=== PATIENT | male | born 1965 | race Caucasian/White ===

== ENCOUNTER 2017-03-29 14:14 | Inpatient (IN) | payer BC, OTHER ==
[~2017-03-29] VITALS: Ht 175.3 cm; Wt 72.6 kg
--- NOTE | 2017-03-29 16:15 | NUR ---
Pre-assessment note: Client is seen in intake at this time. Noted with gross tremors, severe anxiety, sweats and agitation. He is alert and oriented x [address] however disoriented to the date and is unable to do additions at this time. He verbalizes "my skin is crawling out of me and I have something on my skin." Also states "I see patterns and dots on the wall." Reorientation provided. Dr. Guajardo is also present during the pre-admission process. Client states that he is voluntarily here to detox from ETOH. VS: BP: 128/74, Pulse 99, RR 21, O2 sat 95%, Temp 99.1. Patient is a poor historian. He states his last drink was on 03/26/2017. He denies any seizure history but states that he usually goes into DT's when he is detoxing. He is able to verbalize understanding of the admission process. MD Guajardo gave orders for the client to have Ativan 2 mg IM x 1 now for CIWA 38. Charge nurse made aware.
[2017-03-29 16:20] VITALS: BP 128/74
--- NOTE | 2017-03-29 16:21 | NUR ---
Ativan 2 mg IM given: Administered Ativan 2 mg IM x 1 now due to CIWA of 38, noted with moderate-severe tactile, auditory and hearing disturbance, gross tremors, sweating, anxiety, agitation and disorientation. Placed client immediately on 1:1 for safety and brought into the unit to continue care. Requires wheelchair for locomotion on and off unit due to unsteady gait.
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
--- NOTE | 2017-03-29 16:51 | NUR ---
Re-assessment: Ativan 2 mg IM Ativan 2 mg IM was ineffective in reducing patient's withdrawal symptoms. CIWA 40 at this time. MD Guajardo aware and will enter in orders.
[2017-03-29] MEDS ORDERED: INSU100I19 SQ (17:04)
[2017-03-29] MEDS ORDERED: SITA1TAB6 PO (17:04)
[2017-03-29] MEDS ORDERED: LAMO25TA PO (17:04)
[2017-03-29] MEDS ORDERED: ATOR40TA PO (17:04)
[2017-03-29] MEDS ORDERED: EMPA25TA PO (17:04)
--- NOTE | 2017-03-29 17:05 | NUR ---
OT Ativan 2 mg IM given: CIWA 40. Noted with gross tremors, sweating, disorientation with AV hallucinations and tactile disturbance. Patient continues to be on 1:1. Safety precautions in place. OT Ativan 2 mg IM given now. Will monitor for effectiveness.
--- NOTE | 2017-03-29 17:13 | NUR ---
Motrin 400 mg PO given Complains of 5/10 neck pain. Medicated patient with Motrin 400 mg PO as ordered. Will monitor for effectiveness.
[2017-03-29 17:26] LABS: *AMPHETAMINE, URINE NEGATIVE (NEGATIVE); *BARBITURATE, URINE NEGATIVE (NEGATIVE); *CANNABINOID, URINE NEGATIVE (NEGATIVE); *COCCAINE, URINE NEGATIVE (NEGATIVE); *OPIATE, URINE NEGATIVE (NEGATIVE); *PHENCYCLIDINE SCREEN,URINE NEGATIVE (NEGATIVE)
--- NOTE | 2017-03-29 17:35 | NUR ---
Re-assessment: Ativan 2 mg IM CIWA 23. Less anxiety, less agitation, less sweating noted. However, patient continues to have AV hallucinations and tactile disturbance. Patient continues to be disoriented x 1 and is unable to do additions. OT Ativan 2 mg IM was effective in reducing ETOH withdrawal symptoms.
--- NOTE | 2017-03-29 18:13 | NUR ---
Re-assessment: Motrin Per patient, PRN Motrin was mildly effective in reducing patient's neck pain. PL 2.
[2017-03-29 18:42] LABS: ALANINE AMINOTRANSFERASE 32 U/L (16-63); ALKALINE PHOSPHATASE 41 U/L (50-136); AMYLASE 41 U/L (25-115); ASPARTATE AMINOTRANSFERASE 17 U/L (15-37); BILIRUBIN,TOTAL 0.2 mg/dL (0.2-1.0); CARBON DIOXIDE 27 mmol/L (21-32); CHLORIDE 103 mmol/L (98-107); CREATININE 1.7 mg/dL (0.6-1.3); GLUCOSE 187 mg/dL (74-106); LIPASE 133 U/L (73-393); MAGNESIUM 1.9 mg/dL (1.8-2.4); POTASSIUM 3.4 mmol/L (3.5-5.1); TOTAL PROTEIN, SERUM 6.5 g/dL (6.4-8.2); UREA NITROGEN, BLOOD 21 mg/dL (7-18)
[2017-03-29 18:44] LABS: ETHANOL < 3 MG/DL (0-0)
--- NOTE | 2017-03-29 19:02 | NUR ---
End of Shift Notes: Patient is a 51 year old male admitted for ETOH dependence who was placed on a modified 5-day Ativan taper as ordered. No adverse reactions noted. Received 2x Ativan 2 mg IM during the shift due to severe withdrawal symptoms. On 1:1 for unsteady gait and uses wheelchair for locomotion on and off unit. On fall and seizure precautions. Denies S/I or H/I during the shift. Call light in reach. Patient is seen laying in bed with eyes closed at this time. Will continue to monitor closely. VS stable.
--- NOTE | 2017-03-29 19:15 | NUR ---
Start of Shift Note: Patient is a 51 y/o male admitted on 03/29/17 for ETOH dependence. Patient reported with PMHX of Bipolar diroder, C5-C6 Injury, L5-L6 injury, DM II, Hyperlipidemia & hx of Delirium tremens d/t withdrawal. No seizure history noted. Patient is on a regular diet with allergies to Zyprexa & neuroleptic agents. Full Code status. Patient started on a modified Ativan taper and tolerating well. Last CIWA is 23. Pt was given IM Ativan 2x for severe s/s of withdrawal upon admission and were effective. Upon admission, pt was placed on a 1:1 supervision for unsteady gait and safety. Pateint stable at this time and vitals WNL. Safety precautions are in place. bed locked in lowest position. Both side rails up. Call light within pt's reach. Will continue to monitor patient.
[2017-03-29 19:24] LABS: HEMATOCRIT 43.1 % (40-50); HEMOGLOBIN 14.4 G/DL (14.0-18.0); MEAN CORPUSCULAR HEMOGLOBIN 28.7 UUG (27.0-31.0); MEAN CORPUSCULAR HGB CONC 33 g/dL (32.0-37.0); MEAN CORPUSCULAR VOLUME 86.2 FL (82.0-92.0); RED BLOOD CELL COUNT(AUTO) 5.01 MIL/UL (4.7-6.1); WHITE BLOOD COUNT (AUTO) 9.9 K/UL (4.0-11.2)
[2017-03-29 19:25] LABS: BASOPHILS % (AUTO) 0.3 % (0.0-2.0); EOSINOPHILS # (AUTO) 0.2 K/uL (0.0-0.7); EOSINOPHILS % (AUTO) 1.6 % (0.0-7.0); LYMPHOCYTES # (AUTO) 2.2 K/UL (0.8-4.8); LYMPHOCYTES % (AUTO) 21.7 % (20.5-51.5); MONOCYTES # (AUTO) 0.7 K/UL (0.1-1.30); MONOCYTES % (AUTO) 7.4 % (0.0-11.0); NEUTROPHILS # (AUTO) 6.8 K/UL (1.8-8.9); PLATELET COUNT (AUTO) 202 K/UL (150-450)
[2017-03-29 19:45] VITALS: BP 122/76
--- NOTE | 2017-03-29 19:53 | NUR ---
PRN Administration Patient presented with sweating, nausea, & moderately severe tactile disturbance. Pt stated " I can feel worms crawling on my skin". Pt also noted with mild visual and auditory disturbance. Pt is moderately anxious & complained of 8/10 headache. CIWA 28 noted. PRN Ativan 2mg PO & Zofran 4mg SL administered as ordered. Pt refused Tylenol for headache. Continues on a 1:1 supervision for safety. Will continue to monitor patient. Addendum: 03/30/17 at 0218 by LIN SETELE RN Add'l note: Gross tremors noted.
--- NOTE | 2017-03-29 20:53 | NUR ---
PRN Reassessment Pt noted with decrease in anxiety, less sweating and slight relief from headache. However, pt still continues to have auditory, visual and tactile disturbances. Pt is oriented to name, place and situation but disoriented to date. Pt denies nausea at this time. Offered Tylenol to patient for headache but still refused. Explained benefits but still refuses. CIWA 18 noted. Will continue to monitor patient.
--- NOTE | 2017-03-29 22:34 | NUR ---
Pt noted with a potassium level of 3.4. MD with orders to give Micro K 20MeQ for replacement. Orders noted and carried out. Will continue to monitor.
--- NOTE | 2017-03-29 22:48 | NUR ---
IV insertion Inserted peripheral IV 22 gauge on right forearm with good blood return. Flushes easily with no complaints of discomfort from patient. Tegaderm applied.
[2017-03-30] VITALS: BP 118/75
[2017-03-30 04:00] VITALS: BP 104/66
[2017-03-30 06:59] LABS: CREATININE 1.4 mg/dL (0.6-1.3); MAGNESIUM 1.8 mg/dL (1.8-2.4); POTASSIUM 3.8 mmol/L (3.5-5.1)
--- NOTE | 2017-03-30 07:27 | NUR ---
End of shift Note: Pt is a 51 y/o male admitted yesterday for Alcohol dependence. Patient reported with PMHX of Bipolar diroder, C5-C6 Injury, L5-L6 injury, DM II, Hyperlipidemia & hx of Delirium tremens d/t withdrawal. No seizure history noted. Patient is on a regular diet with allergies to Zyprexa & neuroleptic agents. Full Code status. Patient started on a modified Ativan taper and tolerating well. At 1953, pt was given PRN Ativan and Zofran for severe symptoms of withdrawal and were effective. Taper medication was effective in decreasing CIWA score from 28 to 18. Pt was also given Potassium replacement for a K level of 3.4 as per MD's order. IV started on right forearm with IV NS 0.9% currently running at 125 ml per hour for hydration. 1:1 supervision for safety. Pt remains stable and vitals WNL. Pt slept for a total of 8 hours. Pt consumed 2000 ml of fluids. Voided 1x with 1x bowel movement. All needs have been met. All safety measures in place per hospital policy. Bed in lowest position, side rails up x2, call-light within reach. Will continue to monitor.
--- NOTE | 2017-03-30 07:35 | NUR ---
Start Of Shift Report received from rebar bender RN. Pt is a 51 y/o male admitted 03/29/17 for Alcohol dependence. Pt is full code CCHO diet, continues on fall and seizures precautions with allergies to Zyprexa & neuroleptic agents. Patient reported with PMHX of Bipolar disorder, C5-C6 Injury, L5-L6 injury, DM II, Hyperlipidemia & hx of Delirium tremens d/t withdrawal. No seizure history noted. Patient started on a modified Ativan taper and tolerating well. Last night pt was given PRN Ativan and Zofran for symptoms of withdrawal both medications were effective per rebar bender nurse. Pt was also given Potassium replacement for a K level of 3.4 as per MD's order. pt has an IV on right forearm 22G with IV NS 0.9% currently running at 125 ml per hour for hydration. Pt in on a 1:1 supervision for safety. Encouraged fluids to help facilitate detox process. Pt slept for a total of 8 hours. All needs have been met. All safety measures in place per hospital policy. Bed in lowest position, side rails up x2, call-light within reach. Will continue to monitor and provide support.
[2017-03-30 08:00] VITALS: BP 98/61
[2017-03-30 12:00] VITALS: BP 108/66
--- NOTE | 2017-03-30 15:54 | NUR ---
One time Ativan Pt received a One time order for Ativan 2mg PO per MD order for CIWA of 9. all needs met will continue to monitor
[2017-03-30 16:00] VITALS: BP 110/69
--- NOTE | 2017-03-30 19:00 | NUR ---
End Of Shift Report given to police shift commander nurse. Pt is a 51 y/o male admitted 03/29/17 for Alcohol dependence. Pt is full code CCHO diet, continues on fall and seizures precautions with allergies to Zyprexa & neuroleptic agents. Patient continues on a modified Ativan taper and tolerating well. Pt is on a 1:1 for safety, has an IV on his right forearm 22G running NS @125ml/hr. IV patent dry and intact. TB administered on Right arm. VS monitored closely q 4 hours. Withdrawal symptoms were closely monitored. Initial CIWA 11. Patient encouraged adequate PO fluid intake as tolerated. Patient presented with tremors and anxiety during the day. Last CIWA 9. Pt ate all of his meals. Pt received a onetime dose of Ativan 2mg per MD orders. Pt had 750ml of fluids intake with 4 voids and 2 BMs. Patient encouraged to attend group therapies/sessions to learn new coping skills to recent relapse, patient denies SI/HI. Participated in group and therapy sessions. All needs met and attended
[2017-03-30 20:00] VITALS: BP 126/64
--- NOTE | 2017-03-30 21:00 | NUR ---
Start of Shift Received a 51 y/o male admitted 03/29/17 for Alcohol dependence. Pt is full code CCHO diet, continues fall and seizures precautions with allergies to Zyprexa & neuroleptic agents. PMHX of Bipolar disorder, C5-C6 Injury, L5-L6 injury, DM II, Hyperlipidemia & hx of Delirium tremens d/t withdrawal. No seizure history. Patient is on modified Ativan taper and tolerating well. During rounds @1999, IV peripheral access was detached, requested ER personnel for reinsertion. Px should be for NS hydration 125ml/hr. Complained for nape, upper back pain /10. Pt in on a 1:1 supervision for safety. Encouraged fluids to help facilitate detox process. All needs have been met. All safety measures in place per hospital policy. Bed in lowest position, side rails up x2, call-light within reach. Will continue to monitor and provide support.
--- NOTE | 2017-03-30 21:32 | NUR ---
Accucheck Px BS at 2132H is 168mg/dl. Humulin R is given 3 "u" per sliding scale SQ on the left deltoids aseptically. Well continue to monitor.
--- NOTE | 2017-03-30 21:50 | NUR ---
PRN Motrin During rounds at 2000H, px complained of nape, upper back lightning like pain 11/19. Motrin 400mg 1 tab to be given but was refused by the time of administration. Px reported that he doesn't have any pain now. Well continue to monitor
--- NOTE | 2017-03-30 21:50 | NUR ---
Refusal of meds Px is a bit upset, due to that belief that he's getting 4mg of Ativan at 2100. Explained that he's getting Ativan 1mg 2 tabs for tonight and will assess again after an hour if Ativan is needed. Px refused to take K Dur 20meq 1 tab, Mag Ox 400mg 1 tab and Neurontin 300mg 1 cap by the time of administration. Px reports that he doesn't have pain anymore and he doesn't need meds except for Ativan, Atorvastatin and Insulin. Well continue to monitor.
--- NOTE | 2017-03-30 22:00 | NUR ---
IV reinsertion During the rounds at 1999, px IV peripheral access was detached. ER personnel requested for reinsertion. IV peripheral line reinserted aseptically around the right antecubital area. NS hooked and continued, running at 125cc/hr. Will continue to monitor.
--- NOTE | 2017-03-30 23:53 | NUR ---
PRN Ativan Px reports increased anxiety, tactile disturbance, auditory and visual hallucinations, CIWA 12. Ativan 1mg 2 tabs given PO as PRN meds. We'll continue to monitor.
[2017-03-31] VITALS: BP 130/69
--- NOTE | 2017-03-31 01:00 | NUR ---
CIWA rechecked Px verbalizes anxiety, tremors not present, visual and auditory hallucinations verbalized, CIWA 8 after an hour of Ativan 2mg PO PRN administration. We'll continue to monitor.
[2017-03-31 04:00] VITALS: BP 120/71
--- NOTE | 2017-03-31 04:31 | NUR ---
PRN Ativan Px verbalizes anxiety, visual and auditory hallucinations, no tremors noted, CIWA 6 at 0400. Ativan 1mg 1 tab given PO as PRN med. We'll continue to monitor.
[2017-03-31 06:06] LABS: HEPATITIS B SURFACE AG Negative (Negative)
--- NOTE | 2017-03-31 07:12 | NUR ---
End of Shift Note Px is a 51 y/o male admitted 03/29/17 for Alcohol dependence. Pt is full code CCHO diet, fall and seizures precautions with allergies to Zyprexa & neuroleptic agents. No seizure history. Patient is on modified Ativan taper. Px is on NS hydration 125ml/hr peripheral IV access on left antecubital area. Px in on a 1:1 supervision for safety. During the shift, complained for nape, upper back pain 5/10 at 2000, but px refused to take Motrin due to that he was not experiencing pain at the time of administration. Standing order of K Dur 20 meq 1 tab, Mag Ox 400mg 1 tab, and Gabapentin 300mg 1 cap were all refused at the time of administration. Ativan 1mg 2 tabs given PO as PRN at 2353 with CIWA 12. CIWA reduced to 8 at 0100. Ativan 1mg 1 tab given PO as PRN at 0431, with CIWA 6. Encouraged fluids to help facilitate detox process. Oral intake of 1,500ml, vided 4x, BM 3x. Slept for total 4 hrs. All needs have been met. All safety measures in place per hospital policy. Bed in lowest position, side rails up x2, call-light within reach. Latest CIWA 6. Will continue to monitor and provide support.
--- NOTE | 2017-03-31 07:20 | NUR ---
Start of Shift Salon Coordinator received report on 51 year old male admitted on 03/29/17 for ETOH detoxification. Pt reports an allergy to Zyprexa, is a full code and eats a controlled carbohydrate diet. Pt reports PMH of DM 2, Spine injury, hyper-lipidemia and a history of withdrawal related seizures. Pt currently on an Ativan taper. Pt continues to request PRN Ativan, 3 doses PRN on anesthesiology crna. Last CIWA 6 recorded at 0400. Pt has 22 gauge peripheral IV in RAC, running NS at 125ml/hr. Salon Coordinator encounters pt in bed resting, with staff at bedside on 1:1 staffing for seizure precautions. Pt has a flat affect, depressed mood. A/O x4 and able to make needs known. Bed in low position with wheels locked, side rails up x2 and call light within reach. Will continue to monitor, support and encourage according to plan of care.
[2017-03-31 08:08] VITALS: BP 135/88
--- NOTE | 2017-03-31 10:31 | NUR ---
JIMI Duval endorsed to me. All information given.
--- NOTE | 2017-03-31 10:31 | NUR ---
Endorse Care Documentation Improvement Specialist endorsed care to ED Love
[2017-03-31 12:00] VITALS: BP 127/80
[2017-03-31 13:14] LABS: CREATININE 0.8 mg/dL (0.6-1.3); MAGNESIUM 1.7 mg/dL (1.8-2.4); POTASSIUM 3.8 mmol/L (3.5-5.1)
--- NOTE | 2017-03-31 14:03 | NUR ---
MD communication Pt noted to have +MRSA nares. Dr Toro contacted, ordered bactroban to nares Q12H, place on contact isolation. Orders entered, unable to enter orders. Primary nurse notified.
--- NOTE | 2017-03-31 14:40 | NUR ---
ONE TIME Pt with ciwa=27. Pt states feels skin crawling under his skin. Pt very anxious. Pt observed throwing water bottle in the hallway. Pt did not know where he was. Bilateral hand tremors noticed. Addendum: 03/31/17 at 1841 by RODRIGUEZ LAO RN adddtl aware with new order for ativan 2 mg po x1 dose now , noted and carried out.
--- NOTE | 2017-03-31 15:44 | NUR ---
ONE TIME ORDER EVAL Pt with ciwa=10.
[2017-03-31 16:00] VITALS: BP 130/82
--- NOTE | 2017-03-31 16:44 | NUR ---
MD COMMUNICATION Pt with ciwa=20. Reported to MD with new order to hold ativan 1mg due at 1700 and to give the the ativan 2 mg po prn per MD order, noted and carried out.
--- NOTE | 2017-03-31 17:44 | NUR ---
PRN EVAL Pt with ciwa=11 noted.
--- NOTE | 2017-03-31 18:50 | NUR ---
END OF SHIFT Pt 51 y/o male admitted for etoh dx. Pt alert and oriented to name, place, and time. Perrla. Skin warm and slightly moist to touch. Respirations even and unlabored. Bilateral hand tremors noted. Pt with periods of anxiety throughout the day. Pt with 1:1 sitter to monitor for safety. Pt did not attend group activity today. Pt with IV on right arm 22g intact and in place with no redness or infiltration noted and is infusing NS @ 125/hr and is tolerating well. Pt medication compliant and tolerated well. No ASE noted. Bed on lowest position with side rails x2 up for safety. Call light within reach. No distress noted at this time.
[2017-03-31 20:00] VITALS: BP 121/92
--- NOTE | 2017-03-31 20:00 | NUR ---
Start of Shift Received a 51 y/o male admitted 03/29/17 for Alcohol dependence. Px is on Pt is full code CCHO diet, continues fall and seizures precautions with allergies to Zyprexa & neuroleptic agents. PMHX of Bipolar disorder, C5-C6 Injury, L5-L6 injury, DM II, Hyperlipidemia & hx of Delirium tremens d/t withdrawal. No seizure history. Patient is on modified Ativan taper and tolerating well. During rounds @1999, IVF NS is not hooked, hooked into the peripheral IV access on his right antecubital area, running well at 125cc/hr. Encouraged fluids to help facilitate detox process and take a shower or at least change his clothes. Bedsheets should be change as well. All safety measures in place per hospital policy. Bed in lowest position, side rails up x2,padded, call-light within reach. Will continue to monitor and provide support.
--- NOTE | 2017-03-31 21:13 | NUR ---
Accucheck Px's BS= 111 mg/dl at 3. No coverage per protocol. Well continue to monitor.
--- NOTE | 2017-03-31 22:00 | NUR ---
Bed linens During the rounds at 2000H, noticed that the bed linens of px are filthy. Bed linens, pillow cases and blanket changed at around 2200.
--- NOTE | 2017-03-31 22:15 | NUR ---
IVF hydration IVF NS 1 L 2nd bag hooked on peripheral IV access at right antecubital area, running well at 125 cc/hr. Well continue to monitor.
[2017-04-01] VITALS (7 sets, daily range): BP systolic 101–146; BP diastolic 63–82
--- NOTE | 2017-04-01 00:30 | NUR ---
PRN meds Px complained of tactile disturbances and requested for sleeping aid pill. CIWA 10 at 0000. BP= 110/77, IA=71, RR=14, T=98.1, O2sat= 97%. Ativan 1mg 1 tab, Benadryl 50mg 1 cap, Clonidine 0.1mg 1 tab given PO as PRN meds. Well continue to monitor.
--- NOTE | 2017-04-01 00:45 | NUR ---
IVF line IV pump machine, kept on alarming, line checked, flushed with NS but the access was already dislodged. Px refused to start another access. Peripheral IV access line is discontinued at 0050. Encouraged to drink 2-3 liters of water a day, px showed understanding. Well continue to monitor.
--- NOTE | 2017-04-01 03:00 | NUR ---
IV access D/C IV access accidentally dislodge the line, and refused to get another stick. IVF D/C. Px was encouraged to drink 2-3 liters of water a day, verbalized understanding. We'll continue to monitor. Addendum: 04/01/17 at 0701 by ARLETTE WAYNE RN Radames [place]
--- NOTE | 2017-04-01 07:21 | NUR ---
End of Shift Note Px is a 51 y/o male admitted 03/29/17 for Alcohol dependence. Pt is full code CCHO diet, fall and seizures precautions with allergies to Zyprexa & neuroleptic agents. No seizure history. Patient is on modified Ativan taper. During the shift, Px complained of tactile disturbances and requested for sleeping aid pill. CIWA 10 at 0000. BP= 110/77, DE=71, RR=14, T=98.1, O2sat= 97%. Ativan 1mg 1 tab, Benadryl 50mg 1 cap, Clonidine 0.1mg 1 tab given PO as PRN meds. IV pump machine, kept on alarming, line checked, flushed with NS but the access was already dislodged. Px refused to start another access. Peripheral IV access line is discontinued at 0050. Encouraged to drink 2-3 liters of water a day, px verbalized understanding. One to one observation D/C @ 0300H. Oral intake of 1350ml, voided 4x, BM 1x. Slept for 6hrs. All safety measures in place per hospital policy. Bed in lowest position, side rails padded up x2, call-light within reach. Latest CIWA 10. Well continue to monitor and provide support.
--- NOTE | 2017-04-01 07:30 | NUR ---
BLOOD SUGAR Patients 0730 blood sugar: 279, insulin to be administered as per sliding scale. will continue to monitor.
--- NOTE | 2017-04-01 07:35 | NUR ---
BEGINNING OF SHIFT Patient is a 51 year old male, with admitting Dx:etoh dependence. Allergies: neuroleptic agents and Zyprexa. with past medical history of: bipolar d/o, c5-c6 injury, l5-l6 injury; DM 2, Hyperlipidemia. Patient with ongoing modified Ativan taper as ordered. Patient skin is intact. Per night monitor patient slept for 6 hours, and received PRN: Ativan during shift, medication effective as per night monitor. Patient with last ciwa score of: 10. Patient received in bed awake, alert and oriented x4, educated patient regarding plan of care for the day and medication regimen, with good verbal understanding. Patients fall and seizure reactions observed at all times. Patient on contact isolation d/t mrsa nares, isolation precautions to be observed at all times. Safety measures in place. call light kept with in reach, will continue to monitor closely.
[2017-04-01 07:42] LABS: BASOPHILS % (AUTO) 0.4 % (0.0-2.0); EOSINOPHILS # (AUTO) 0.2 K/uL (0.0-0.7); HEMATOCRIT 41.4 % (40-50); HEMOGLOBIN 13.8 G/DL (14.0-18.0); LYMPHOCYTES # (AUTO) 1.4 K/UL (0.8-4.8); LYMPHOCYTES % (AUTO) 11.8 % (20.5-51.5); MEAN CORPUSCULAR HEMOGLOBIN 28.1 UUG (27.0-31.0); MEAN CORPUSCULAR HGB CONC 33 g/dL (32.0-37.0); MEAN CORPUSCULAR VOLUME 84.6 FL (82.0-92.0); MONOCYTES # (AUTO) 0.5 K/UL (0.1-1.30); NEUTROPHILS # (AUTO) 9.8 K/UL (1.8-8.9); NEUTROPHILS % (AUTO) 81.8 % (38.5-71.5); PLATELET COUNT (AUTO) 187 K/UL (150-450); RED BLOOD CELL COUNT(AUTO) 4.89 MIL/UL (4.7-6.1); WHITE BLOOD COUNT (AUTO) 11.9 K/UL (4.0-11.2)
--- NOTE | 2017-04-01 08:15 | NUR ---
NON COMPLIANT Patient to be administered 9 units of insulin as per sliding scale, patient refusing insulin administration and refusing all scheduled morning medications. risk vs benefits of refusing insulin, medications, and detox medications were explained to patient with good verbal understanding, refused despite explanations, patient reports he will not take any mediations including insulin if he does not get an additional dose of Ativan. MD aware, will continue to monitor, will re-offer in one hour. Addendum: 04/01/17 at 1020 by DIONTE THOMAS LVN Patient presenting with: fine tremors, barely sweating, moderate anxiety, mild agitation, very mild pins and needle sensation to fingers and feet, very mild auditory and visual hallucination with ciwa score of: 11.
[2017-04-01 08:29] LABS: CREATININE 0.9 mg/dL (0.6-1.3); MAGNESIUM 1.6 mg/dL (1.8-2.4); PHOSPHOROUS 4.1 mg/dL (2.5-4.9); POTASSIUM 3.6 mmol/L (3.5-5.1)
--- NOTE | 2017-04-01 09:15 | NUR ---
NON COMPLIANT Continues refusing all scheduled morning medications. risk vs benefits of refusing insulin, medications, and detox medications were explained to patient with good verbal understanding, refused despite explanations, patient reports he will not take any mediations including insulin if he does not get an additional dose of Ativan. MD aware, will continue to monitor, will re-offer in one hour.
--- NOTE | 2017-04-01 09:58 | NUR ---
PT COMMUNICATION All morning scheduled medications were re-offered to patient, risk vs benefits of refusing medications and detox medications were explained with good verbal understanding. Patient agreed to take all medications. Patient now requesting to have insulin administered as well. Notified Dr. Guajardo, as per MD, blood sugar to be rechecked one time and administer insulin as per sliding scale. MD unable to input order at this time, order was read back and verified with MD for blood sugar monitoring x1. Per MD ok to also have late administration of Janumet. Safety measures in place. call light kept with in reach, will continue to monitor closely.
--- NOTE | 2017-04-01 10:28 | NUR ---
BLOOD SUGAR Patients blood sugar 279, as per MD to follow sliding scale. patient was administered 9 units of regular insulin as ordered, will continue to monitor.
--- NOTE | 2017-04-01 18:48 | NUR ---
END OF SHIFT Patient alert and oriented x4, Patient at times non compliant with plan of care, encouraged compliance. Provided with calming reassurance as needed. Patient continues on modified Ativan taper as ordered, well tolerated no ASE noted. 0900 assessment patient presented with: Fine tremors, barely sweating, moderate anxiety, mild agitation, very mild pins and needles, and very mild auditory visual and auditory hallucinations with ciwa score of: 11; 1300 assessment patient presented with: Fine tremors, barely sweating, mild anxiety, mild agitation, very mild pins and needles, and very mild auditory visual and auditory hallucinations with ciwa score of: 08 1700 assessment patient presented with: Fine tremors, barely sweating, mild anxiety, mild agitation, very mild pins and needles, and very mild auditory visual and auditory hallucinations with ciwa score of: 08. During ciwa assessment patient verbalizing at times he hears voices and sees shadows, psychiatrist is aware. Patients blood sugar monitored closely. 0730 blood sugar: 279, refused insulin administration. Per MD blood sugar was rechecked at 1023 with blood sugar of 261, administered 9 units of regular insulin as ordered; 1130 blood sugar 104, no insulin administered as per sliding scale. And 1630 blood sugar: 131, administered 2 units of regular insulin as ordered. During shift magnesium was replaced as ordered. Patient was encouraged to increase PO fluid intake as tolerated. Patient was administered no PRNs during shift. Patient denies SI/HI. Encouraged to attend group therapies/sessions to learn new coping skills to prevent relapse. MD is aware of patients current status, continues under close observation. Patient was encouraged to attend group therapies/sessions to learn new coping skills to prevent relapse.
--- NOTE | 2017-04-01 20:17 | NUR ---
Start of Shift Received a 51 y/o male admitted 03/29/17 for Alcohol dependence. Px is on full code, CCHO diet, continues fall and seizures precautions with allergies to Zyprexa & neuroleptic agents. PMHX of Bipolar disorder, C5-C6 Injury, L5-L6 injury, DM II, Hyperlipidemia & hx of Delirium tremens d/t withdrawal. No seizure history. Patient is on modified Ativan taper and tolerating well. No complaints at the moment during rounds at 1930. CIWA 6 at 2000H. All safety measures in place per hospital policy. Bed in lowest position, side rails up x2, padded, call-light within reach. Will continue to monitor and provide support.
--- NOTE | 2017-04-01 21:36 | NUR ---
Accucheck Px's BS= 126mg/dl, no coverage per sliding scale protocol. We'll continue to monitor.
[2017-04-02] VITALS: BP 116/76
[2017-04-02 04:00] VITALS: BP 119/77
--- NOTE | 2017-04-02 04:00 | NUR ---
CIWA deferred CIWA assessment deferred due to the px is sleeping, to assess if the px is awake per doctor's order. We'll continue to monitor.
--- NOTE | 2017-04-02 07:29 | NUR ---
End of Shift 51 y/o male admitted 03/29/17 for Alcohol dependence. Px is on full code, CCHO diet, continues fall and seizures precautions with allergies to Zyprexa & neuroleptic agents. PMHX of Bipolar disorder, C5-C6 Injury, L5-L6 injury, DM II, Hyperlipidemia & hx of Delirium tremens d/t withdrawal. No seizure history. Patient is on modified Ativan taper and tolerating well. During the shift, No complaints received. BS= 126 mg/dl, no coverage given. Last CIWA 5. Oral intake of 1,400 ml, voided 2x, no BM. Slept for 7.5 hrs. All safety measures in place per hospital policy. Bed in lowest position, side rails up x2, padded, call-light within reach. Well continue to monitor and provide support.
--- NOTE | 2017-04-02 07:50 | NUR ---
START OF SHIFT NOTE 51 year old male admitted to [facility] for alcohol use disorder/ alcohol dependence with withdrawal induced delirium "delirium tremens" and placed on 5 day Ativan taper. Received report from night RN. Per night RN report, Pt last CIWA 5 at midnight, no PRN medications given, slept 7 hours. PT MRSA positive nares culture and is on contact isolation. History of Bipolar disorder, diabetes and is on blood glucose monitoring AC, hyperlipidemia. History of seizures, no seizures this admission. History acute kidney injury; acute kidney failure due to pre-renal azotemia. chronic low back pain discogenic without radiculopathy, chronic tobacco use. On 0730 patient rounds pt observed to be sleeping, respirations regular, contact isolation cart and contact isolation sign on door noted, bed in low position and locked, padded side rails up x 2, seizure and fall precautions in place. Will continue to monitor.
[2017-04-02 08:00] VITALS: BP 118/70
[2017-04-02 08:08] LABS: BASOPHILS # (AUTO) 0.1 K/uL (0.0-8.0); BASOPHILS % (AUTO) 0.9 % (0.0-2.0); EOSINOPHILS # (AUTO) 0.2 K/uL (0.0-0.7); EOSINOPHILS % (AUTO) 1.9 % (0.0-7.0); HEMATOCRIT 44.1 % (40-50); HEMOGLOBIN 14.5 G/DL (14.0-18.0); LYMPHOCYTES # (AUTO) 2.1 K/UL (0.8-4.8); LYMPHOCYTES % (AUTO) 18.4 % (20.5-51.5); MEAN CORPUSCULAR HEMOGLOBIN 27.9 UUG (27.0-31.0); MEAN CORPUSCULAR HGB CONC 33 g/dL (32.0-37.0); MEAN CORPUSCULAR VOLUME 84.8 FL (82.0-92.0); MONOCYTES # (AUTO) 0.8 K/UL (0.1-1.30); MONOCYTES % (AUTO) 7.1 % (0.0-11.0); NEUTROPHILS % (AUTO) 71.7 % (38.5-71.5); PLATELET COUNT (AUTO) 204 K/UL (150-450); WHITE BLOOD COUNT (AUTO) 11.2 K/UL (4.0-11.2)
[2017-04-02 08:37] LABS: BAND % (MANUAL) 3 % (0-10); BASOPHILS % (MANUAL) 1 % (0-2); EOSINOPHILS % (MANUAL) 3 % (0-8); LYMPHOCYTES % (MANUAL) 18 % (20-40); METAMYELOCYTES % 1 % (0-1); MONOCYTES % (MANUAL) 9 % (2-10); NEUTROPHILS % (MANUAL) 65 % (42-75)
[2017-04-02 08:57] LABS: CREATININE 0.9 mg/dL (0.6-1.3); PHOSPHOROUS 5.7 mg/dL (2.5-4.9)
--- NOTE | 2017-04-02 08:59 | NUR ---
0859 BLOOD SUGAR AND COVERAGE Blood sugar 232. Given 6 units Humilin R.
--- NOTE | 2017-04-02 09:09 | NUR ---
PRN MEDICATION ADMINISTRATION Pt reports headache, states pain 04/21, however appears calm, relaxed, no grimacing or signs of pain. Carlton CHILDS. Addendum: 04/02/17 at 1414 by LUCIANA HUMPHRIES RN Incorrect pain level noted. Headache pain reported as 12/20.
--- NOTE | 2017-04-02 10:09 | NUR ---
PRN MEDICATION REASSESSMENT Headache pain 0/10 after Motrin PRN dose.
[2017-04-02] MEDS ORDERED: NICO-463 BC (11:12)
--- NOTE | 2017-04-02 11:15 | NUR ---
Nursing notes Client requests for Nicotine lozenges, Dr. Guajardo notified.
--- NOTE | 2017-04-02 11:32 | NUR ---
1132 BLOOD SUGAR AND COVERAGE Blood sugar 194. Given 3 units Humilin R SQ.
[2017-04-02 12:39] VITALS: BP 122/64
[2017-04-02 16:00] VITALS: BP 137/87
--- NOTE | 2017-04-02 16:45 | NUR ---
Client was prompted to attend daily group sessions at 11am and 3:30pm. Client stated that he would attend.
--- NOTE | 2017-04-02 16:50 | NUR ---
BLOOD SUGAR AND COVERAGE Blood sugar 163, gave 3 units Humilin R insulin SQ.
--- NOTE | 2017-04-02 19:13 | NUR ---
END OF SHIFT 51 year old male admitted to [facility] for alcohol use disorder/ alcohol dependence with withdrawal induced delirium "delirium tremens" and placed on 5 day Ativan taper. Tolerating ativan taper with CIWA 11 at 0902, given scheduled ativan dose, then at 0945 the CIWA decreased to 3. CIWA 4 at 1134 and at 1630. 0859 Blood glucose 232, gave 6 units Humulin R SQ. 1132 blood glucose 194, given 3 units Humulin R SQ. 1650 blood glucose 163. Given 3 units Humulin R SQ. Report given to night RN. Call light within reach, bed in low position and locked, MRSA contact isolation cart/sign in place, seizure and fall precautions in place.
--- NOTE | 2017-04-02 19:30 | NUR ---
Start of shift note Patient is a 51 year old male admitted to [facility] on 03-29-17 for alcohol detox. PT MRSA positive via nares culture and is on contact isolation. Past medical history of delirium tremons and seizures r/t withdrawal from alcohol, c5-c6 injury, l5-l6 injury, diabetes type 2, hyperlipidemia, and Bipolar disorder. Patient on fall and seizure precaution. He is on a modified ativan taper without noted complications. Patient vss. Last CIWA at 4pm-4. Patient on AC and bedtime Accucheck, sliding scale insulin, as well as Levimir 14 units at Bedtime. Patient also on Lovenox SQ. Safety measures in place. Contact isolation in place. Report received from AM nurse
[2017-04-02 20:00] VITALS: BP 119/83
--- NOTE | 2017-04-02 21:00 | NUR ---
Blood sugar and coverage Patient blood sugar 132. 2 Units Humulin R SQ administered to Left upper extremity per sliding scale.
--- NOTE | 2017-04-03 | NUR ---
CIWA deferred. Vital signs refused. Patient refused 0000 vital signs. Patients CIWA deferred due to sleep.
[2017-04-03 04:00] VITALS: BP 113/71
--- NOTE | 2017-04-03 06:57 | NUR ---
End of shift note Patient is a 46 year old male admitted to [facility] for ETOH detox on 03-29-17. He has completed a modified ativan taper without complications. Patient is a full code, on a regular diet. He has seasonal allergies. Past medical history includes Asthma, insomnia, anxiety and depression. Patient is on fall and seizure precautions. Patient vital signs at 2000 BP 122/81, P 82, R 16, SPO2 100% on RA, T 99.8. Temp rechecked 98.4. CIWA 4. Patient given Trazodone 100 mg PO at 2132 for insomnia with little effect. Patient with complaints of anxiety and racing thoughts. Patient given clonidine 0.1 mg PO and Vistaril 25 mg PO at 2335. Good effect noted. Patient with complaints of dry/red eyes. ROHTO ICE eye drops administered at 0000 with good effect. Vital signs at 0000 BP 112/76, P 72, R 18, SPO2 96% on RA. CIWA 3. Patient VS at 0400 BP 114/74, P 74, R 16, SPO2 98% on RA, T 97.6. Intake 750 ml, output 2 voids, Slept 6 hours. Report to AM nurse Addendum: 04/03/17 at 0700 by JUNIOR PIERSON RN wrong patient Addendum: 04/03/17 at 0707 by JUNIOR PIERSON RN Entered in error / wrong patient
--- NOTE | 2017-04-03 07:01 | NUR ---
End of shift note Patient is a 51 year old male admitted to [facility] on 03-29-17 for alcohol detox. PT MRSA positive via nares culture and is on contact isolation. Patient on fall and seizure precautions, full code, controlled carbohydrate/diabetic diet. Allergies: Zyprexa and neuroleptic agents. Past medical history of delirium tremons and seizures r/t withdrawal from alcohol, C5-C6 injury, L5-L6 injury, diabetes type 2, hyperlipidemia, and Bipolar disorder. He denies SI or HI. Mood has remained stable with noted anxiety and limited insight. He remains on a modified ativan taper without noted complications. Patients vital signs at 1999: BP 119/83, P 88, R 20, SPO2 94% on RA, T 98.5. CIWA 4. Patient accu- check 132 with 2 units Humulin R sliding scale coverage administered SQ to LUE at 2112. Patient refused vital signs at 0000, CIWA deferred for sleep. VS at 0400: BP 113/71, P 67, R 18 , SPO2 97% on RA, T 98.1. CIWA 4. Intake 1000 ml Output 3 voids and 1 BM. slept total of 8 hours. Safety measures in place. Contact isolation in place. Report to AM nurse
--- NOTE | 2017-04-03 07:30 | NUR ---
BLOOD GLUCOSE COVERAGE Blood glucose 158, given 2 units Humulin R SQ
[2017-04-03 08:00] VITALS: BP 131/87
--- NOTE | 2017-04-03 08:00 | NUR ---
START OF SHIFT 51 year of male admitted for ETOH dependence. Hx of Bipolar disorder, C5-C6 and L5-L6 disc disease, DM II, hyperlipidemia. Hx of seizures. MRSA postive nares, on contact isolation. Received report from night RN. Last CIWA 4 at 0400, no PRN medications given during night supervisor. On 0730 rounds, blood glucose 158, given 2 units Humulin R SQ. PT alert and oriented. CIWA 3 at 0800. Bed in low position and locked, side rails up x 2 and padded, call light in reach, contact isolation cart and sign outside room and contact isolation observed. Will continue to monitor.
--- NOTE | 2017-04-03 09:50 | NUR ---
MEDICATION ADMINISTRATION 0800 dose of Janumet not in Pt's cassette this am. Pharmacy notified. Given at 0950 when received from pharmacy.
--- NOTE | 2017-04-03 10:10 | NUR ---
PPD TEST PPD placed on RT arm on 03/30/17. Read as negative 04/01/17. However, PPD injection site today noted with redness and 2 cm induration on palpation, and 1 cm circumference dark redness. Dr. Guajardo notified.
--- NOTE | 2017-04-03 10:45 | NUR ---
PPD test Dr. Guajardo requested if Pt had had the TB vaccine in the past and date of his last chest x-ray and if x-ray was negative or positive. RN asked Pt and Pt reports he received the TB vaccine 3 years ago and last chest x-ray was a year ago and was negative. Dr. Guajardo notified. No intervention needed per .
[2017-04-03 12:00] VITALS: BP 132/90
--- NOTE | 2017-04-03 12:09 | NUR ---
BLOOD GLUCOSE COVERAGE Blood glucose 141. Given 2 units Humulin R SQ.
[2017-04-03 12:30] VITALS: BP 132/90
--- NOTE | 2017-04-03 16:45 | NUR ---
PT REFUSAL OF INSULIN Blood glucose 392, rechecked was 379, sliding scale coverage would have been 15 units. Pt refused, stating he wanted to see if his blood sugar would go lower. Instructed patient that he was about to eat dinner soon and so his glucose would go up. Pt continued to refuse. RN notified Dr. Guajardo. Dr. Guajardo asked the RN to tell the patient that he is directing the patient to take his insulin. RN informed patient of MD response and pt continued to refuse to take insulin. Dr. Guajardo notified.
--- NOTE | 2017-04-03 17:00 | NUR ---
REFUSAL FOR VITAL SIGNS Pt refused vital signs.
--- NOTE | 2017-04-03 18:00 | NUR ---
MEDICATION REFUSAL Pt refused [address] Guajardo notified of pt's refusal for vital signs and medication.
--- NOTE | 2017-04-03 19:00 | NUR ---
END OF SHIFT NOTE 51 year old male admitted for ETOH dependence. History of DM II. Positive for Hep C. Allergy to Zyprexa, neuroleptics. On contact isolation for MRSA in nares. CIWA 5 at 1600. Pt refused insulin coverage for blood glucose 379 at 1745, also refused vital signs and [address] Guajardo notified of pts refusal for insulin at 1645. At 1850, Dr. Guajardo notified of patient's refusal for vitals at 1700, and 1800 medications. Pt appears withdrawn, flat affect, no visible tremors or diaphoresis. CIWA 5 at 1600. Report given to night RN. Call light within reach, bed in low position and locked, side rails up x 2 and padded. Seizure and fall precautions in place.
--- NOTE | 2017-04-03 19:30 | NUR ---
START OF SHIFT Patient is a 51 year old male admitted to [facility] on 03-29-17 for alcohol detox. PT MRSA positive via nares culture and is on contact isolation. Past medical history of delirium tremons and seizures r/t withdrawal from alcohol, c5-c6 injury, L5-L6 injury, diabetes type 2, hyperlipidemia, and Bipolar disorder. Patient on fall and seizure precaution. He completed a modified ativan taper without noted complications. Patient vital signs stable. Last CIWA at 4pm-3. Patient on AC and bedtime Accu-check, sliding scale insulin, as well as Levimir 14 units at Bedtime. per AM nurse patient is refusing meds. MD is aware. Safety measures in place. Contact isolation in place. Report received from AM nurse
[2017-04-03 20:00] VITALS: BP 132/85
--- NOTE | 2017-04-03 20:00 | NUR ---
Patient with complaints of headache stating 10 ourt of 10 pain upon assessment of vital signs. patient refused any medication intervention at this time. Patient without facial grimacing, squinting, or need for decreased stimulation.
--- NOTE | 2017-04-03 20:30 | NUR ---
Patient pain reassessed Patient reports no headache pain at this time.
--- NOTE | 2017-04-03 21:00 | NUR ---
ACCUCHECK Patients blood sugar by accucheck 184. patient received 3 units of humulin R SQ per sliding scale.
[2017-04-03] MEDS ORDERED: MUPI22OI2 NS (21:05)
[2017-04-03] MEDS ORDERED: GABA-534 PO ×2 (21:05)
[2017-04-03] MEDS ORDERED: INSU100I19 SQ (21:05)
[2017-04-03] MEDS ORDERED: TRAZ-144 PO (21:05)
[2017-04-03] MEDS ORDERED: FOLI1TAB16 PO (21:09)
[2017-04-03] MEDS ORDERED: HYDR-3026 PO (21:09)
[2017-04-03] MEDS ORDERED: THIA100T13 PO (21:09)
[2017-04-03] MEDS ORDERED: MULT-24 PO (21:09)
--- NOTE | 2017-04-04 | NUR ---
CIWA deferred/vital signs refused. patient refused vital signs at 0000. stating "I want to sleep" CIWA deferred due to sleep. Patient resting comfortably in bed, eyes closed, breathing even and unlabored.
--- NOTE | 2017-04-04 04:00 | NUR ---
CIWA deferred/vital signs refused. patient refused vital signs at 0400. stating "I want to sleep" CIWA deferred due to sleep. Patient resting comfortably in bed, eyes closed, breathing even and unlabored.
--- NOTE | 2017-04-04 06:48 | NUR ---
End of shift note Patient is a 51 year old male admitted to [facility] on 03-29-17 for alcohol detox. PT MRSA positive via nares culture and is on contact isolation. Patient on fall and seizure precautions, is a full code, on a controlled carbohydrate/diabetic diet. He has allergies to Zyprexa and neuroleptic agents. Patient has past medical history of delirium tremons and seizures r/t withdrawal from alcohol, C5-C6 injury, L5-L6 injury, diabetes Type 2, hyperlipidemia, and Bipolar disorder. He denies SI or HI. Mood with lability noted as well as impaired judgement and limited insight. He has completed a modified ativan taper without noted complications. Patients vital signs at 1999:132/85, P 86, R 16, SPO2 96% on RA, T 98.2. CIWA 8. Patient accu- check 184 with 3 units Humulin R sliding scale coverage. Patient refused vital signs at 0000 and 0400, CIWA deferred for sleep. Intake 1620 ml Output 3 voids. Patient slept total of 5 hours. Safety measures in place. Contact isolation in place. Report to AM nurse.
--- NOTE | 2017-04-04 07:30 | NUR ---
START OF SHIFT Pt 51 y/o male admitted for etoh dx. Pt received in room awake on bed watching television. Pt alert and oriented to name, place, and time. Perrla. Skin warm and slightly moist to touch. Respirations even and unlabored. It was reported that pt slept for 4 hours last night. Pt is scheduled to be discharged today. Bed on lowest position with side rails x2 up for safety. Call light within reach. No distress noted at this time.
[2017-04-04 08:25] VITALS: BP 118/76
--- NOTE | 2017-04-04 09:45 | NUR ---
SHAR Pt 51 y/o male admitted for etoh dependence. Pt discharged to [facility] via private transport. Pt alert and oriented to name, place, and time. Perrla. Skin warm and dry to touch. Respirations even and unlabored. All home medications, discharge papers, home medications from cassette, and prescriptions packed in pt bag. No belongings in cabinet noted. VS wnl. No distress noted.
== END 2017-04-04 09:45 | disposition home or self-care (01) | DRG 895 ==
LOC: SRC 16:02
PROVIDERS: ADMIT Internal Medicine; ATTEND Internal Medicine
PROC: HZ2ZZZZ Detoxification Services for Substance Abuse Treatment (ICD-10-PCS; principal; 2017-03-29)
PROC: HZ31ZZZ Individual Counseling for Substance Abuse Treatment, Behavioral (ICD-10-PCS; 2017-03-30)
PROC: HZ41ZZZ Group Counseling for Substance Abuse Treatment, Behavioral (ICD-10-PCS; 2017-04-02)
DX: F10.231 Alcohol dependence with withdrawal delirium (principal); N17.9 Acute kidney failure, unspecified; E78.5 Hyperlipidemia, unspecified; G89.29 Other chronic pain; Z22.322 Carrier or suspected carrier of Methicillin resistant Staphylococcus aureus; Y90.0 Blood alcohol level of less than 20 mg/100 ml; Z79.899 Other long term (current) drug therapy; Z79.84 Long term (current) use of oral hypoglycemic drugs; Z91.19 Patient's noncompliance with other medical treatment and regimen; G47.00 Insomnia, unspecified; E87.6 Hypokalemia; E83.42 Hypomagnesemia; E11.9 Type 2 diabetes mellitus without complications; Z91.11 Patient's noncompliance with dietary regimen; M54.5 Low back pain; E86.9 Volume depletion, unspecified; F17.210 Nicotine dependence, cigarettes, uncomplicated; F41.9 Anxiety disorder, unspecified
CPT/HCPCS: 36415; 70030-TC; 80307; 80346; 83690; 83735; 84100; 85025; 86580; 86592; 86705; 86803; 87340; 87806; A4663; G0480; J1650; J1815; J2060; J3411; J7030; J7040; Q0162; Q0163